=== PATIENT | male | born 1980 | race Caucasian/White ===

== ENCOUNTER → 2019-12-29 16:40 | Outpatient (CLI) | payer OTHER | END | disposition home or self-care (01) | LOC: D.LAB 16:40 | PROVIDERS: ATTEND Urology | DX: N40.0 Benign prostatic hyperplasia without lower urinary tract symptoms (principal) ==

== ENCOUNTER 2020-05-26 06:15 | Day surgery (SDC) | payer OTHER ==
[~2020-05-26] VITALS: Ht 188 cm; Wt 106.6 kg
[~2020-05-26 06:15] MED LIST: FLOMAX0.4 MG PO; OMEPRAZOLE20 M1 PO; PROTONIX40 MG PO
[2020-05-26 06:37] LABS: BASOPHILS 0.1 % (0-2); EOSINOPHILS 0 % (0-7); HEMATOCRIT 50.6 % (42.0-54.0); HEMOGLOBIN 17.5 g/dL (13.5-17.5); IMMATURE GRANULOCYTES 0.3 % (0-5); LYMPHOCYTES 7.5 % (15-50); MCH 30.8 pg (26.0-34.0); MCHC 34.6 g/dL (31.0-37.0); MCV 88.9 fL (80.0-100.0); MONOCYTES 2.6 % (2-11); NEUTROPHILS 89.5 % (40-80); PLATELET COUNT 266 10x3/uL (130-400); RBC 5.69 10x6/uL (4.20-6.10); RDW 12.3 % (11.5-14.5); WBC 19.1 10x3/uL (4.8-10.8)
[2020-05-26 06:45] LABS: ANION GAP 10.8 mmol/L (8-16); CALCIUM 9.6 mg/dL (8.5-10.1); CARBON DIOXIDE 29.9 mmol/L (21.0-32.0); CREATININE - SERUM 1.2 mg/dL (0.6-1.3); POTASSIUM - SERUM 4.7 mmol/L (3.5-5.1)
[2020-05-26 06:54] VITALS: BP 140/88; Ht 188 cm; Wt 106.6 kg
[2020-05-26] MEDS ORDERED: ULTRAM50 MG PO (09:53)
--- NOTE | 2020-05-26 10:00 | NUR ---
BOVIE PAD SITE SLIGHTLY PINK ON EDGES WHEN REMOVED SOME BETTER WHEN ARRIVED IN PACU, JOSE A.
--- NOTE | 2020-05-26 10:12 | NUR ---
PT VERY NAUSEATED AND DRY HEAVING. PROVIDED ONE TIME ORDER OF PHENERGAN 25MG VIA IM. PT NOW LYING ON HIS L.SIDE. VSS. WILL CTM.
--- NOTE | 2020-05-26 12:15 | NUR ---
1130 VOIDED 1135 IV REMOVED
--- NOTE | 2020-05-26 13:22 | OP ---
PATIENT NAME: NISA HACKETT MEDICAL RECORD: [id number] :82 LOCATION:D.OPS ADMISSION DATE: SURGEON: TONE SAHU MD DATE OF OPERATION: 05/26/2020 PREOPERATIVE DIAGNOSES: 1. Biliary dyskinesia. 2. Gastroesophageal reflux disease. POSTOPERATIVE DIAGNOSES: 1. Biliary dyskinesia. 2. Gastroesophageal reflux disease. PROCEDURE: Laparoscopic cholecystectomy. SURGEON: Tone Sahu MD REPORT OF PROCEDURE: The patient's abdomen was prepped and draped in sterile fashion. A cutdown was made on the superior aspect of the umbilicus, 0 Vicryls were placed in the fascia bilaterally and the fascia was incised with 15-blade. I then bluntly entered the peritoneal cavity and placed a 12-mm Jomar port. Under direct visualization, a 5-mm trocar was placed in the epigastrium and two more 5-mm trocars were placed in the right subcostal region. The gallbladder was grasped and elevated. The cystic artery and cystic duct were dissected free and I had my critical view of safety. These structures were clipped proximally and distally and ligated in standard fashion. The gallbladder was then taken off the liver bed using electrocautery and placed into the right upper quadrant. Any bleeding from the liver bed was then treated with electrocautery. We irrigated out the right upper quadrant. The gallbladder was placed into an Endo Catch bag. At this point, the ports and insufflation were then removed and the gallbladder was taken out through the umbilicus. The umbilical fascia was closed with interrupted 0 Vicryls times 3. The wounds were then irrigated out with normal saline and infused with 10 mL of 0.25% Marcaine with epinephrine. Skin incisions were all closed with subcutaneous 5-0 Monocryl and dressed appropriately. COMPLICATIONS: None. CONDITION: Stable. ANESTHESIA: General endotracheal and local. BLOOD LOSS: Minimal. TRANSINT:[id number] Voice Confirmation ID: [id number] DOCUMENT ID: [id number] TONE SAHU MD at 1322 CC: LOYDA GARCIA [id number] DICTATION DATE: 05/26/20 0957 [employer] [employer]: 05/26/20 1231 [facility] 05/26/20 [facility] [address] [place] [address]
== END 2020-05-26 11:40 | disposition home or self-care (01) ==
LOC: D.OPS 06:15
PROVIDERS: ATTEND Surgery
DX: K82.8 Other specified diseases of gallbladder (principal); K21.9 Gastro-esophageal reflux disease without esophagitis; R10.11 Right upper quadrant pain

== ENCOUNTER 2020-06-23 08:54 | Day surgery (SDC) | payer OTHER ==
[~2020-06-23] VITALS: Ht 188 cm; Wt 109.1 kg
[~2020-06-23 08:54] MED LIST changes: +ULTRAM50 MG PO
[2020-06-23 09:44] VITALS: BP 125/71; Ht 188 cm; Wt 109.1 kg
--- NOTE | 2020-06-23 12:08 | NUR ---
[id number] BEDSIDE ESOPHAGEAL MANOMETRY.
--- NOTE | 2020-06-23 13:51 | NUR ---
1215 IV REMOVED AND PRESSURE HELD INSTRUCTIONS GIVEN.
--- NOTE | 2020-06-28 09:49 | OP ---
PATIENT NAME: NISA HACKETT MEDICAL RECORD: [id number] :82 LOCATION:D.OPS ADMISSION DATE: SURGEON: TONE SAHU MD DATE OF OPERATION: 06/23/2020 PREOPERATIVE DIAGNOSES: 1. Gastroesophageal reflux disease. 2. Hiatal hernia. POSTOPERATIVE DIAGNOSES: 1. Gastroesophageal reflux disease. 2. Hiatal hernia. PROCEDURE: EGD with biopsy and manometry catheter placement. SURGEON: Tone Sahu MD REPORT OF PROCEDURE: The Olympus endoscope was advanced through the mouth and esophagus. We easily passed through the GE junction and into the stomach. Once in the stomach, we were able to pass through the pylorus and get to the second and third portion of the duodenum. There were no signs of any ulcerations or masses. As we pulled the scope back, we could see the distal aspect of the stomach and antrum. Again, no masses or ulcerations were visualized. A random biopsy was taken of the antrum of the stomach and sent for permanent specimen. Retroflexed view showed that the patient did have a hiatal hernia. This appeared to be wide-mouthed. The GE junction appeared to have some effacement. We inspected the remainder of the gastric body. There were no masses, lesions or ulcerations visible. The GE junction rested at 35 cm from the teeth and the diaphragmatic hiatus rested 40 cm from the teeth. The hiatal hernia was approximately 5-6 cm in length. A random biopsy was taken on the distal aspect of the esophagus. There were no signs of any ulcerations or inflammatory changes on the distal esophagus. At this point, the insufflation was removed. The scope was taken out and a manometry catheter was inserted in the patient's right naris. We reinserted the scope to make sure that the catheter was in good position in the stomach. COMPLICATIONS: None. CONDITION: Stable. ANESTHESIA: TIVA. BLOOD LOSS: Minimal. TRANSINT:[id number] Voice Confirmation ID: [id number] DOCUMENT ID: [id number] TONE SAHU MD at 0949 CC: NATHANIEL MINA MD [id number] DICTATION DATE: 06/23/20 1138 [facility]: 06/23/20 1328 [facility] 06/23/20 [place] [id number]
== END 2020-06-23 12:30 | disposition home or self-care (01) ==
LOC: D.OPS 08:54
PROVIDERS: ATTEND Surgery
DX: K21.9 Gastro-esophageal reflux disease without esophagitis (principal); K44.9 Diaphragmatic hernia without obstruction or gangrene; K82.8 Other specified diseases of gallbladder